=== PATIENT | male | born 1960 | race Caucasian/White ===

== ENCOUNTER 2021-07-14 15:14 | Emergency (ER) | payer OTHER ==
[2021-07-14 16:43] LABS: HEMOGLOBIN 18.7 gm/dl (14.0-17.5); RED BLOOD COUNT 6.12 M/UL (4.20-5.50); WHITE BLOOD COUNT 9.5 K/UL (4.5-11.0)
[2021-07-14 17:09] LABS: BUN/CREATININE RATIO 17 (0-10)
== END 2021-07-14 18:16 | disposition home or self-care (01) ==
LOC: ER1 15:14
PROVIDERS: Physician Assistant Medical
DX: F43.9 Reaction to severe stress, unspecified (principal); E11.9 Type 2 diabetes mellitus without complications; Z79.84 Long term (current) use of oral hypoglycemic drugs; I10 Essential (primary) hypertension; Z90.49 Acquired absence of other specified parts of digestive tract; Z88.2 Allergy status to sulfonamides
CPT/HCPCS: 70450; 80053; 82550; 82553; 82962; 83874; 84439; 84443; 84484; 85025; 93005; 99285